=== PATIENT | male | born 1935 | race Caucasian/White ===

== ENCOUNTER 2016-10-23 13:00 | Outpatient (CLI) | payer MEDICARE, OTHER | END 2016-10-23 13:01 | disposition home or self-care (01) | DX: N13.8 Other obstructive and reflux uropathy (principal); N19 Unspecified kidney failure ==

== ENCOUNTER 2016-11-23 13:50 | Outpatient (CLI) | payer MEDICARE, OTHER | END 2016-11-23 13:51 | disposition home or self-care (01) | DX: N05.9 Unspecified nephritic syndrome with unspecified morphologic changes (principal) ==

== ENCOUNTER 2020-03-11 09:03 | Emergency (ER) | payer MEDICARE, OTHER ==
--- NOTE | 2020-03-11 09:21 | ED Physician Documentation ---
History of Present Illness - Stated complaint Stated Complaint: ABNORMAL LABS - History obtained from History obtained from: Patient, Family () - Additonal information Additional information: 84-year-old gentleman with history of renal insufficiency, he does see Dr. Vera. He is not feeling well for the last couple of months, fatigued and worthless. He has had some weight loss with it. There is no pain, no pedal edema, no shortness of breath. He went to set he is PCP and I guess labs were done 2 days ago which showed something worse about his kidneys and he was advised to come here. I do not have any details of what the actual abnormalities were. Review of Systems Ten Systems: 10 systems reviewed and negative Constitutional: reports: Fatigue, Weight Loss. denies: Fever, Chills Cardiac: denies: Chest pain / pressure, Palpitations Respiratory: denies: Dyspnea, Cough GI: denies: Abdominal Pain PD PAST MEDICAL HISTORY - Past Medical History Past Medical History: Yes Cardiovascular: Coronary artery disease GI: Ulcers - Past Surgical History Past Surgical History: Yes General: Other (hernia) Cardiovascular: CABG - Present Medications Home Medications: Ambulatory Orders Medication Instructions Recorded Confirmed Aspirin [[place] Aspirin EC] mg PO 03/11/20 Doxazosin [Cardura] mg PO 03/11/20 Ferrous Gluconate [Iron] 03/11/20 Lovastatin mg PO 03/11/20 Ramipril [Altace] 03/11/20 carvediloL [Coreg] 03/11/20 - Allergies Allergies/Adverse Reactions: Allergies Allergy/AdvReac Type Severity Reaction Status Date / Time No Known Drug Allergies Allergy Verified 03/11/20 09:21 - Living Situation Living Situation: reports: With spouse/s.o. - Social History Does the pt have substance abuse?: No - Family History Family history: reports: Non contributory PD ED PE NORMAL - Vitals Vital signs reviewed: Yes - General General: Alert and oriented X 3, No acute distress - HEENT HEENT: PERRL, EOMI - Neck Neck: Supple, no meningeal sign, No bony TTP - Cardiac Cardiac: RRR, No murmur - Respiratory Respiratory: No respiratory distress, Clear bilaterally - Abdomen Abdomen: Soft, Non tender - Back Back: No CVA TTP, No spinal TTP - Derm Derm: Normal color, Warm and dry - Extremities Extremities: No edema, No calf tenderness / cord - Neuro Neuro: Alert and oriented X 3, Normal speech Results - Vitals Vitals: Vital Signs - 24 hr 03/11/20 03/11/20 09:05 10:35 Temperature 36.8 C Heart Rate 79 67 Respiratory 18 16 Rate Blood Pressure 165/80 H 154/71 H O2 Saturation 99 100 Oxygen O2 Source Room air - Labs Labs: Laboratory Tests 03/11/20 03/11/20 03/11/20 09:07 09:28 09:28 WBC 6.2 RBC 3.40 L Hgb 10.4 L Hct 32.1 L MCV 94.4 H MCH 30.6 MCHC 32.4 RDW 12.9 Plt Count 197 MPV 11.6 H Neut # (Auto) 4.5 Lymph # (Auto) 0.7 L [place] # (Auto) 0.6 Eos # (Auto) 0.4 Baso # (Auto) 0.1 Absolute Nucleated RBC 0.00 Nucleated RBC % 0.0 Sodium 136 Potassium 4.2 Chloride 97 L Carbon Dioxide 24 Anion Gap 15.0 H BUN 77 H Creatinine 6.3 H Estimated GFR (MDRD) 9 L Glucose 131 H Calcium 9.0 Phosphorus 6.1 H Magnesium 2.3 Total Bilirubin 0.6 AST 23 ALT 22 Alkaline Phosphatase 52 Total Protein 7.2 Albumin 3.6 Globulin 3.6 Albumin/Globulin Ratio 1.0 Lipase 46 Urine Color YELLOW Urine Clarity CLEAR Urine pH 6.5 Ur Specific [place] <=1.005 Urine Protein TRACE Urine Glucose (UA) NEGATIVE Urine Ketones NEGATIVE Urine Occult Blood NEGATIVE Urine Nitrite NEGATIVE Urine Bilirubin NEGATIVE Urine Urobilinogen 0.2 (NORMAL) Ur Leukocyte Esterase NEGATIVE Urine RBC 0-5 Urine WBC 0-3 Ur Squamous Epith Cells RARE Squamous Urine Bacteria Rare - Rads (name of study) bladder sono Radiology: EMP read contemporaneously (No bladder distention, 58 mL prevoid and 19 mL post void bladder volume with moderate prostate enlargement.) PD MEDICAL DECISION MAKING - ED course ED course: Spoke with his tear down matcher, Dr. Vera at approximately 10:30 AM discussing the acute on chronic renal failure. He seemed quite worried because in December of this year his GFR was 20 and he has been stable right around a GFR of 20 for many years. He recommended that we check an ultrasound of the bladder, if he is retaining he needs a [facility], if he is not retaining he recommended transfer to [facility] for work-up and treatment of his acute renal failure. Bladder scan was negligible, accepted to [facility] by Dr. Dulce Wiggins at approximately 11:40 AM and cobras were completed. He is stable for transport. Departure - Departure Disposition: 02 Transfer Acute Care Hosp Clinical Impression: ARF (acute renal failure) Qualifiers: Acute renal failure type: unspecified Qualified Code(s): N17.9 - Acute kidney failure, unspecified Condition: Serious
[2020-03-11 09:29] LABS: BILIRUBIN,URINE NEGATIVE (NEGATIVE); GLUCOSE, URINE (UA) NEGATIVE (NEGATIVE); KETONES,URINE (UA) NEGATIVE (NEGATIVE); LEUKOCYTE ESTERASE, URINE NEGATIVE (NEGATIVE); NITRITE,URINE NEGATIVE (NEGATIVE); OCCULT BLOOD,URINE NEGATIVE (NEGATIVE); PH,URINE 6.5 PH (5.0-7.5); PROTEIN,URINE TRACE mg/dL (NEGATIVE); UROBILINOGEN,URINE 0.2 (NORMAL) E.U./dL (NORMAL)
[2020-03-11 09:32] LABS: CLARITY,URINE CLEAR (CLEAR)
[2020-03-11 09:35] LABS: BASOPHILS # (AUTO) 0.1 10^3/uL (0.0-0.1); BASOPHILS % (AUTO) 1.4 %; EOSINOPHILS # (AUTO) 0.4 10^3/uL (0.0-0.7); EOSINOPHILS % (AUTO) 5.6 %; HGB - HEMOGLOBIN 10.4 g/dL (14.0-18.0); LYMPHOCYTES # (AUTO) 0.7 10^3/uL (1.5-3.5); LYMPHOCYTES % (AUTO) 10.5 %; MEAN CORPUSCULAR HEMOGLOBIN 30.6 pg (27.0-31.0); MEAN CORPUSCULAR HGB CONC 32.4 g/dL (32.0-36.0); MEAN CORPUSCULAR VOLUME 94.4 fL (80.0-94.0); MEAN PLATELET VOLUME 11.6 fL (7.4-11.4); MONOCYTES # (AUTO) 0.6 10^3/uL (0.0-1.0); MONOCYTES % (AUTO) 10.1 %; NEUTROPHILS # (AUTO) 4.5 10^3/uL (1.5-6.6); NEUTROPHILS % (AUTO) 72.2 %; PLT - PLATELET COUNT 197 10^3/uL (130-450); RED CELL DISTRIBUTION WIDTH 12.9 % (12.0-15.0); WHITE BLOOD COUNT 6.2 x10^3/uL (4.8-10.8)
[2020-03-11 09:47] LABS: BACTERIA,URINE Rare /HPF (None Seen); RBC,URINE 0-5 /HPF (0-5); SQUAMOUS EPITHELIAL CELL,UR RARE Squamous (<= Few)
[2020-03-11 09:49] LABS: ALBUMIN 3.6 g/dL (3.2-5.5); BILIRUBIN,TOTAL 0.6 mg/dL (0.2-1.0); CREATININE 6.3 mg/dL (0.6-1.2); MAGNESIUM 2.3 mg/dL (1.7-2.8); PHOSPHORUS 6.1 mg/dL (2.5-4.6); TOTAL PROTEIN 7.2 g/dL (6.7-8.2)
--- NOTE | 2020-03-11 11:23 | Ultrasound Report ---
PROCEDURE: Bladder INDICATIONS: renal failure TECHNIQUE: Bladder only evaluation was requested by the ordering health care provider. COMPARISON: 10/23/2016 retroperitoneal ultrasound.. FINDINGS: Kidneys are not evaluated. The prevoid bladder volume is 58 cc, postvoid residual is 19 cc. Prostate size is 3.5 x 3.1 x 5.5 cm, 31 cc prostate volume estimated. IMPRESSION: No bladder distention present, 58 cc prevoid bladder volume, 19 cc postvoid bladder volume. Mild to m oderate prostatic enlargement. Reviewed by: Bogdan Bello MD on 03/11/2020 11:22 AM PDT Approved by: Bogdan Bello MD on 03/11/2020 11:22 AM PDT Station ID: [id number]
[2020-03-11 14:11] VITALS: BP 143/77
== END 2020-03-11 14:15 | disposition short-term general hospital (02) ==
LOC: ED 09:03
DX: N17.9 Acute kidney failure, unspecified (principal)
CPT/HCPCS: 36415; 76857; 80053; 81001; 83690; 83735; 84100; 85025; 99283; 99285

== ENCOUNTER 2020-03-11 14:06 | Outpatient (CLI) | payer MEDICARE, OTHER | END 2020-03-11 14:07 | disposition short-term general hospital (02) | LOC: EMS 14:06 | PROVIDERS: ATTEND Surgery | DX: N19 Unspecified kidney failure (principal) | CPT/HCPCS: A0425; A0426 ==

== ENCOUNTER 2020-04-30 11:17 | Outpatient (CLI) | payer MEDICARE, OTHER ==
[2020-05-02 17:49] LABS: HEPATITIS B SURFACE ANTIGEN NON-REACTIVE (NON-REACTIVE)
== END 2020-04-30 11:18 | disposition home or self-care (01) ==
LOC: LAB 11:17
PROVIDERS: ATTEND Internal Medicine Nephrology
DX: B19.10 Unspecified viral hepatitis B without hepatic coma (principal)
CPT/HCPCS: 36415; 86317; 86704; 87340

== ENCOUNTER 2021-01-13 14:18 | Outpatient (CLI) | payer MEDICARE, OTHER | END 2021-01-13 14:19 | disposition EMS.NT | LOC: EMS 14:18 | DX: R53.1 Weakness (principal); R41.0 Disorientation, unspecified; R53.83 Other fatigue ==

== ENCOUNTER 2021-10-05 14:47 | Outpatient (CLI) | payer MEDICARE, OTHER ==
--- NOTE | 2021-10-05 15:35 | XRAY Report ---
PROCEDURE: Chest 2 View X-Ray INDICATIONS: HEART FAILURE TECHNIQUE: 2 view(s) of the chest. COMPARISON: None. FINDINGS: SUPPORT DEVICES: Sternotomy wires are well aligned. Post CABG change. Surgical clips in the gastroesophageal region. LUNGS/PLEURA: Extensive bilateral calcified granulomas. Coarsened interstitial markings. Biapical pleural thickening/scarring. No focal consolidation, pleural effusion or space-occupying pne umothorax. MEDIASTINUM: The cardiomediastinal silhouette is within normal limits. BONES/SOFT TISSUES: No acute abnormality. IMPRESSION: 1.No acute cardiopulmonary abnormality. Reviewed by: Isaias Harmon MD on 10/05/2021 3:34 PM PST Approved by: Isaias Harmon MD on 10/05/2021 3:34 PM PST Station ID: [id number]
== END 2021-10-05 14:48 | disposition home or self-care (01) ==
LOC: DI 14:47
PROVIDERS: ATTEND Internal Medicine Nephrology
DX: I50.9 Heart failure, unspecified (principal)

== ENCOUNTER 2021-10-21 18:21 | Outpatient (CLI) | payer MEDICARE, OTHER | END 2021-10-21 18:22 | disposition critical access hospital (66) | LOC: EMS 18:21 | DX: R53.1 Weakness (principal); R53.83 Other fatigue; R42 Dizziness and giddiness | CPT/HCPCS: A0425; A0427 ==

== ENCOUNTER 2021-10-21 18:46 | Observation (INO) | payer MEDICARE, OTHER ==
[2021-10-21 19:32] LABS: BASOPHILS % (AUTO) 0.3 %; EOSINOPHILS # (AUTO) 0.1 10^3/uL (0.0-0.7); EOSINOPHILS % (AUTO) 1.2 %; HCT - HEMATOCRIT 37.6 % (42.0-52.0); HGB - HEMOGLOBIN 12.2 g/dL (14.0-18.0); LYMPHOCYTES # (AUTO) 0.7 10^3/uL (1.5-3.5); LYMPHOCYTES % (AUTO) 6.5 %; MEAN CORPUSCULAR HEMOGLOBIN 30.2 pg (27.0-31.0); MEAN CORPUSCULAR HGB CONC 32.4 g/dL (32.0-36.0); MEAN CORPUSCULAR VOLUME 93.1 fL (80.0-94.0); MEAN PLATELET VOLUME 11.9 fL (7.4-11.4); MONOCYTES # (AUTO) 0.7 10^3/uL (0.0-1.0); MONOCYTES % (AUTO) 6.5 %; NEUTROPHILS # (AUTO) 8.9 10^3/uL (1.5-6.6); NEUTROPHILS % (AUTO) 85.1 %; NRBC ABSOLUTE COUNT (AUTO) 0.16 x10^3/uL; NUCLEATED RED BLOOD CELLS AUTO 1.5 /100WBC; PLT - PLATELET COUNT 143 10^3/uL (130-450); RED BLOOD COUNT 4.04 10^6/uL (4.70-6.10); RED CELL DISTRIBUTION WIDTH 16.5 % (12.0-15.0); WHITE BLOOD COUNT 10.4 x10^3/uL (4.8-10.8)
[2021-10-21 19:35] LABS: ALBUMIN 1.1 g/dL (3.2-5.5); ALBUMIN/GLOBULIN RATIO 0.3 (1.0-2.2); BILIRUBIN,TOTAL 0.7 mg/dL (0.2-1.0); CALCIUM 7.1 mg/dL (8.5-10.3); CREATININE 6.7 mg/dL (0.6-1.2); POTASSIUM 2.7 mmol/L (3.5-5.0); TOTAL PROTEIN 4.6 g/dL (6.7-8.2)
--- NOTE | 2021-10-21 19:39 | XRAY Report ---
PROCEDURE: Chest 1 View X-Ray INDICATIONS: chest pain TECHNIQUE: One view of the chest was acquired. COMPARISON: Chest radiographs 10/05/2021 FINDINGS: Surgical changes and devices: Postsurgical changes from median sternotomy and CABG. A right sided tara edith catheter is seen with catheter tip projecting over the superior cavoatrial junction. Surgical cli ps are seen projecting over the gastroesophageal junction and mediastinum. Lungs and pleura: No pleural effusions or pneumothorax. No acute consolidation. Bilateral calcified granulomas are redemonstrated. Mediastinum: Mediastinal contours appear normal. Heart size is normal. Aortic atherosclerotic calc ifications are present. Bones and chest wall: No suspicious bony lesions. Overlying soft tissues appear unremarkable. IMPRESSION: No acute cardiopulmonary abnormality. Reviewed by: Sanya Arredondo MD on 10/21/2021 7:38 PM PST Approved by: Sanya Arredondo MD on 10/21/2021 7:38 PM PST Station ID: [id number]
[2021-10-21 19:43] LABS: INR 1.2 (0.8-1.2); PT - PROTHROMBIN TIME 13.2 secs (9.9-12.6)
--- NOTE | 2021-10-21 19:51 | ED Physician Documentation ---
History of Present Illness - Stated complaint Stated Complaint: WEAKNESS S/P FISTULA PLACEMENT - Chief complaint Chief Complaint: Neuro - History obtained from History obtained from: Patient - Additonal information Additional information: 86yM with pmh esrd on home peritoneal dialysis, cad s/p cabg, chf, p/w generalized weakness ongoing for several months, worsening this week. Patient states that because of this, his plater production Dr. Vera recommended he start HD. he underwent R subclavian central access yesterday without complication. patient states he was npo for procedure and needed his son to help him get to the hospital prior to procedure due to weakness. He then had decreased appetite and hasn't eaten much since the procedure, and states he was unable to get up from lying today and so he and his called ems. patient currently lives alone with his and has no additional caregivers in the home. denies fevers, cp, soa, nausea, leg swelling. +generalized weakness and intermittent lightheadedness. Review of Systems Ten Systems: 10 systems reviewed and negative Constitutional: denies: Fever, Chills Cardiac: denies: Chest pain / pressure Respiratory: denies: Dyspnea Neurologic: reports: Generalized weakness, Other (dizziness) PD PAST MEDICAL HISTORY - Past Medical History Cardiovascular: Coronary artery disease GI: Ulcers - Past Surgical History Past Surgical History: Yes General: Other (hernia) Cardiovascular: CABG - Present Medications Home Medications: Ambulatory Orders Medication Instructions Recorded Confirmed Aspirin [[place] Aspirin EC] mg PO 03/11/20 Doxazosin [Cardura] mg PO 03/11/20 Ferrous Gluconate [Iron] 03/11/20 Lovastatin mg PO 03/11/20 Ramipril [Altace] 03/11/20 carvediloL [Coreg] 03/11/20 - Allergies Allergies/Adverse Reactions: Allergies Allergy/AdvReac Type Severity Reaction Status Date / Time No Known Drug Allergies Allergy Verified 03/11/20 09:21 - Social History Does the pt smoke?: No Smoking Status: Never smoker Does the pt drink ETOH?: No Does the pt have substance abuse?: No - Immunizations Immunizations are current?: Yes - POLST Patient has POLST: No PD ED PE NORMAL - Vitals Vital signs reviewed: Yes - General General: Alert and oriented X 3, No acute distress, Other (elderly appearing) - HEENT HEENT: Atraumatic, PERRL, EOMI - Neck Neck: Supple, no meningeal sign - Cardiac Cardiac: RRR - Respiratory Respiratory: No respiratory distress, Clear bilaterally - Abdomen Abdomen: Non tender, Non distended, Other (RLQ peritoneal dialysis site clean with dressing in place) - Derm Derm: Normal color, Warm and dry, Other (R subclavian central line intact with dressing clean and in place) - Extremities Extremities: No deformity - Neuro Neuro: Alert and oriented X 3, No motor deficit, No sensory deficit - Psych Psych: Normal mood, Normal affect Results - Vitals Vitals: Vital Signs - 24 hr 10/21/21 10/21/21 10/21/21 19:07 19:45 20:19 Temperature 36.7 C Heart Rate 93 92 98 Respiratory 30 H 18 16 Rate Blood Pressure 126/69 126/76 119/65 O2 Saturation 100 100 100 10/21/21 10/21/21 10/21/21 20:30 21:00 21:30 Temperature Heart Rate 96 89 90 Respiratory 19 1 L 18 Rate Blood Pressure 108/58 L 113/69 118/66 O2 Saturation 100 100 100 10/21/21 10/21/21 10/21/21 22:00 22:30 23:00 Temperature Heart Rate 87 87 89 Respiratory 18 18 18 Rate Blood Pressure 119/69 118/69 118/61 O2 Saturation 100 100 100 Oxygen O2 Source Room air - Labs Labs: Laboratory Tests 10/21/21 10/21/21 10/21/21 19:10 19:10 19:10 WBC 10.4 RBC 4.04 L Hgb 12.2 L Hct 37.6 L MCV 93.1 MCH 30.2 MCHC 32.4 RDW 16.5 H Plt Count 143 MPV 11.9 H Neut # (Auto) 8.9 H Lymph # (Auto) 0.7 L [place] # (Auto) 0.7 Eos # (Auto) 0.1 Baso # (Auto) 0.0 Absolute Nucleated RBC 0.16 Nucleated RBC % 1.5 PT 13.2 H INR 1.2 Sodium 138 Potassium 2.7 L Chloride 100 L Carbon Dioxide 25 Anion Gap 13.0 BUN 35 H Creatinine 6.7 H Estimated GFR (MDRD) 8 L Glucose 235 H Calcium 7.1 L Magnesium Total Bilirubin 0.7 AST 14 ALT 11 Alkaline Phosphatase 88 Total Creatine Kinase Total Protein 4.6 L Albumin 1.1 L Globulin 3.5 Albumin/Globulin Ratio 0.3 L Lipase 107 H 10/21/21 10/21/21 20:56 23:10 WBC RBC Hgb Hct MCV MCH MCHC RDW Plt Count MPV Neut # (Auto) Lymph # (Auto) [place] # (Auto) Eos # (Auto) Baso # (Auto) Absolute Nucleated RBC Nucleated RBC % PT INR Sodium 136 Potassium 3.5 Chloride 103 Carbon Dioxide 20 L Anion Gap 13.0 BUN 33 H Creatinine 6.9 H Estimated GFR (MDRD) 8 L Glucose 193 H Calcium 7.2 L Magnesium 1.8 Total Bilirubin AST ALT Alkaline Phosphatase Total Creatine Kinase 298 H Total Protein Albumin Globulin Albumin/Globulin Ratio Lipase PD MEDICAL DECISION MAKING - ED course ED course: 86yM p/w generalized weakness for several months, worsening over the past couple days. will check labs, cxr, ekg, reevaluate. Potassium 2.7 is potential precipitant of muscle weakness. also with signs of severe malnourishment. d/w Dr. Enrique, operations lead for Dr. Vera, patient's plater production who recommends observation admission to correct lyte imbalances. He states patient will not need dialysis for several days. d/w Dr. Ramirez who would like us to recheck K after repletion. He will check in with warehouse order picker whether we can bring patient's home peritoneal dialysis equipment in to the hospital. Patient states his son can bring the equipment to the hospital if needed. Departure - Departure Disposition: ED Place in Observation Clinical Impression: Malnourished, Weakness, Hypokalemia Condition: Stable
[2021-10-21] MEDS ORDERED: POTASSIUM CHLORIDE 20 MEQ/15 ML UDC PO STA (19:57)
[2021-10-21] MEDS ORDERED: POTASSIUM CHLOR 10 MEQ/100 ML 10 MEQ/100 ML BAG IV ONE (19:58)
[2021-10-21] MEDS ORDERED: CALCIUM GLUCONATE IN NS 0.9% 2,000 MG/100 ML BAG IV STA (20:27)
[2021-10-21 21:14] LABS: MAGNESIUM 1.8 mg/dL (1.7-2.8)
[2021-10-21 23:38] LABS: CALCIUM 7.2 mg/dL (8.5-10.3); CREATININE 6.9 mg/dL (0.6-1.2); POTASSIUM 3.5 mmol/L (3.5-5.0)
[2021-10-21] MEDS ORDERED: D5.45NS W/20 MEQ KCL 1,000 ML IV SCH (23:45)
--- NOTE | 2021-10-21 23:55 | HISTORY & PHYSICAL EXAMINATION ---
Chief Complaint - Chief Complaint Chief Complaint: Weakness History of Present Illness - Admitted From Admitted From:: Home - History Obtained From Records Reviewed: Yes History obtained from: Patient, ER Physician, EMR - History of Present Illness HPI Comment/Other: This is a 86-year-old male with a past medical history significant for end-stage renal disease on peritoneal dialysis, hypertension, coronary artery disease who presents today due to increasing weakness. He states that has been progressive over the past 1 to 2 years but over the past 2 to 3 days he has progressively become weaker. He had a dialysis catheter placed yesterday in the right chest wall in preparation of starting hemodialysis instead of peritoneal dialysis. He states today he could not get up out of bed on his own which is unusual. He normally ambulates on his own without the use of a walker although he does have one at home. He states he did do physical therapy about 6 months ago which did provide some benefit. He reports no chest pain or dyspnea. He does have heartburn and has a history of a duodenal ulcer in the past. He is on a PPI for this. He reports no focal deficits. Just generalized weakness. He has been on peritoneal dialysis for about 3 years now. He does not nearly every day with his sessions running about 10 hours. He last had peritoneal dialysis last night. He does report decreased oral intake and a poor appetite. No nausea or diarrhea. He reports no muscle aches or pain. He follows with Dr. Vera of Nephrology. In the emergency department, he was noted to have a potassium of 2.7. Given his weakness and hypokalemia, medicine was asked to place the patient in observation. I did discuss goals of care with the patient and he would like to be a DNR. History - Past Medical History Cardiovascular: reports: Hypertension, Coronary artery disease GI: reports: Ulcers : reports: Dialysis, Renal insuffiency HEENT: reports: Chronic hearing loss MRSA Hx?: No - Past Surgical History General: reports: EGD, Other (hernia) Cardiovascular: reports: CABG - Family & Social History Family History Comment/Other: He reports his father from renal dise ase. His paternal grandfather had a myocardial infarction. Living arrangement: At home Living Situation: With spouse/s.o. Social History Notes: He lives at home with his . He smoked a pack a day for 10 years but quit in the 50s. He will rarely drink a glass of wine. - POLST Patient has POLST: No Meds/Allgy - Home Medications Home Medications: Ambulatory Orders Medication Instructions Recorded Confirmed Aspirin [[place] Aspirin EC] mg PO 03/11/20 Doxazosin [Cardura] mg PO 03/11/20 Ferrous Gluconate [Iron] 03/11/20 Lovastatin mg PO 03/11/20 Ramipril [Altace] 03/11/20 carvediloL [Coreg] 03/11/20 - Allergies Allergies/Adverse Reactions: Allergies Allergy/AdvReac Type Severity Reaction Status Date / Time No Known Drug Allergies Allergy Verified 03/11/20 09:21 Review of Systems - Constitutional Constitutional: reports: Fatigue, Weakness, Poor appetite. denies: Fever, Chills - Ears, Nose & Throat Ears, Nose & Throat: denies: Nasal discharge, Postnasal drainage, Sore throat - Cardiovascular Cariovascular: reports: Edema. denies: Chest pain, Exertional dyspnea, Decr. exercise tolerance - Respiratory Respiratory: denies: Cough, SOB at rest, SOB with exertion - Gastrointestinal Gastrointestinal: reports: Reflux/heartburn, Poor appetite. denies: Abdominal pain, Diarrhea, Change in bowel habits, Nausea, Vomiting - Genitourinary Genitourinary: reports: Other (Minimal urine output.) - Integumentary Integumentary: denies: Rash - Neurological Neurological: reports: General weakness. denies: Focal weakness, Headache, Dizziness, Numbness Prior Level of Functionality: He is normally independent with his ADLs. Exam - Vital Signs Reviewed Vital Signs: Yes Vital Signs: Vital Signs x48h Temp Pulse Resp BP Pulse Ox 10/21/21 23:30 93 16 109/60 100 10/21/21 23:00 89 18 118/61 100 10/21/21 22:30 87 18 118/69 100 10/21/21 22:00 87 18 119/69 100 10/21/21 21:30 90 18 118/66 100 10/21/21 21:00 89 1 L 113/69 100 10/21/21 20:30 96 19 108/58 L 100 10/21/21 20:19 98 16 119/65 100 10/21/21 19:45 92 18 126/76 100 10/21/21 19:07 36.7 C 93 30 H 126/69 100 - Physical Exam General Appearance: positive: No acute distress, Alert Eyes Bilateral: positive: Normal inspection, Conjunctivae nml ENT: positive: ENT inspection nml, Dry mucous membranes. negative: No signs of dehydration Neck: positive: Nml inspection Respiratory: positive: No respiratory distress. negative: Wheezes, Rales Cardiovascular: positive: Regular rate & rhythm. negative: Tachycardia, Systolic murmur Abdomen: positive: Non-tender, No distention, Other (Peritoneal dialysis catheter in place.). negative: Tenderness Skin: positive: Warm, Dry Extremities: positive: Pedal edema (+1 edema in bilateral lower extremities.) Neurologic/Psychiatric: positive: Other (No focal deficits. He is moving all four extremities.). negative: Disoriented to person, Disoriented to place Conclusion/Plan - Problem List (1) Weakness Conclusion/Plan: This appears to be multifactorial and secondary to his end-stage renal disease, age, and decreased appetite/decreased oral intake. His potassium is also noted to be decreased at 2.7 but I am not sure that this is the cause of his weakness which seems to have been gradual. At this time, we will hydrate him overnight with IV fluids. We have replaced his potassium and recheck is 3.5. We will give another 20 mEq of potassium. We will ask PT to evaluate him and we will consult social work to assist with disposition as he may benefit from caregivers at home. We will also check a troponin although low suspicion for ACS. (2) Hypokalemia Conclusion/Plan: His potassium was decreased at 2.7. His magnesium was within normal limits. This was initially thought potentially be contributing to his weakness and was replaced in the emergency department. It is improved to 3.5 but he still has weakness without improvement. We will give him another 20 mill equivalents of potassium and recheck in the morning. (3) ESRD (end stage renal disease) Conclusion/Plan: He has end-stage renal disease and is currently on peritoneal dialysis with a plan to transition to hemodialysis shortly as a catheter was just placed at [facility] in [place]. He is followed by Dr. Vera of nephrology. We will ask his family to bring in his peritoneal dialysis equipment if he needs to be hospitalized for more than one night. (4) Hyperglycemia Conclusion/Plan: His blood glucose elevated at 235. We will check an A1c and start him on Lantus 5 units this evening plus sliding scale. (5) History of coronary artery disease Conclusion/Plan: He has known history of coronary artery disease status post CABG. His EKG does not suggest ischemia at the moment although there was a lot of motion artifact. We will resume his home medications and check a troponin. - Lab Results Lab results reviewed: Yes Hammad Bones: 10/21/21 19:10 10/21/21 23:10 - Diagnostic Imaging Results Diagnostic Imaging Results: positive: Final report reviewed - EKG Results EKG Interpreted Independently: Yes EKG Findings: EKG appears to show sinus rhythm with low voltage. There is motion artifact. Core Measures - Anticipated LOS I expect patient to be DC'd or transferred within 96 hours.: Yes - Issues Hospital Issues and Management Plan: 86-year-old male with end-stage renal disease on peritoneal dialysis presents with progressive weakness found to be hypokalemic. Will place in observation for potassium supplementation and IV hydration. - DVT/VTE - Prophylaxis VTE/DVT Device ordered at admit?: Yes VTE/DVT Prophylaxis med ordered at admit?: Yes
[2021-10-21] MEDS ORDERED: SODIUM CHLORIDE FLUSH 0.9% 10 ML SYRINGE IVP PRN (23:59)
[2021-10-21] MEDS ORDERED: ONDANSETRON 4 MG/2 ML VIAL IVP PRN (23:59)
[2021-10-21] MEDS ORDERED: ONDANSETRON ODT 4 MG TABLET TL PRN (23:59)
[2021-10-21] MEDS ORDERED: ACETAMINOPHEN 325 MG TABLET PO PRN (23:59)
[2021-10-22] MEDS ORDERED: POTASSIUM CHLORIDE 20 MEQ TABLET PO ONE (00:02)
[2021-10-22] MEDS ORDERED: INSULIN GLARGINE 300 UNIT/3 ML PEN SUBQ SCH (00:10)
[2021-10-22] MEDS ORDERED: NS W/20 MEQ KCL 1,000 ML IV SCH (01:00)
[2021-10-22 01:16] LABS: B. PARAPERTUSSIS- RESP PCR PAN NOT DETECTED; B. PERTUSSIS- RESP PCR PANEL NOT DETECTED; C. PNEUMONIAE- RESP PCR PANEL NOT DETECTED; CORONAVIRUS 229E-RESP PCR NOT DETECTED; CORONAVIRUS HKU1-RESP PCR NOT DETECTED; CORONAVIRUS NL63-RESP PCR NOT DETECTED; CORONAVIRUS OC43-RESP PCR NOT DETECTED; HUMAN METAPNEUMOVIRUS NOT DETECTED; INFLUENZA A- RESP PCR PANEL NOT DETECTED; INFLUENZA B - RESP PCR PANEL NOT DETECTED; M. PNEUMONIAE- RESP PCR PANEL NOT DETECTED; PARAINFLUENZA VIRUS 1 NOT DETECTED; PARAINFLUENZA VIRUS 2 NOT DETECTED; PARAINFLUENZA VIRUS 3 NOT DETECTED; PARAINFLUENZA VIRUS 4 NOT DETECTED; RHINOVIRUS/ENTEROVIRUS NOT DETECTED; RSV- RESP PCR PANEL NOT DETECTED; SARS-CoV-2 -RESP PCR PANEL NOT DETECTED
[2021-10-22] MEDS: SODIUM CHLORIDE FLUSH 0.9% 10 ML SYRINGE IVP SCH ×2 (01:28→09:10)
[2021-10-22 05:55] LABS: BASOPHILS % (AUTO) 0.4 %; EOSINOPHILS # (AUTO) 0.2 10^3/uL (0.0-0.7); EOSINOPHILS % (AUTO) 1.8 %; HCT - HEMATOCRIT 34.7 % (42.0-52.0); HGB - HEMOGLOBIN 11.2 g/dL (14.0-18.0); LYMPHOCYTES # (AUTO) 0.9 10^3/uL (1.5-3.5); LYMPHOCYTES % (AUTO) 9.4 %; MEAN CORPUSCULAR HEMOGLOBIN 29.9 pg (27.0-31.0); MEAN CORPUSCULAR HGB CONC 32.3 g/dL (32.0-36.0); MEAN CORPUSCULAR VOLUME 92.5 fL (80.0-94.0); MEAN PLATELET VOLUME 11.9 fL (7.4-11.4); MONOCYTES # (AUTO) 0.7 10^3/uL (0.0-1.0); MONOCYTES % (AUTO) 7.5 %; NEUTROPHILS # (AUTO) 7.9 10^3/uL (1.5-6.6); NEUTROPHILS % (AUTO) 80.5 %; NRBC ABSOLUTE COUNT (AUTO) 0.17 x10^3/uL; NUCLEATED RED BLOOD CELLS AUTO 1.7 /100WBC; PLT - PLATELET COUNT 128 10^3/uL (130-450); RED BLOOD COUNT 3.75 10^6/uL (4.70-6.10); RED CELL DISTRIBUTION WIDTH 16.4 % (12.0-15.0); WHITE BLOOD COUNT 9.8 x10^3/uL (4.8-10.8)
[2021-10-22 07:13] LABS: CALCIUM 7.5 mg/dL (8.5-10.3); MAGNESIUM 1.9 mg/dL (1.7-2.8); PHOSPHORUS 3.6 mg/dL (2.5-4.6); POTASSIUM 3.7 mmol/L (3.5-5.0)
[2021-10-22 07:15] LABS: CREATININE 7.2 mg/dL (0.6-1.2)
[2021-10-22 07:52] VITALS: BP 113/58
[2021-10-22] MEDS: INSULIN ASPART 300 UNIT/3 ML PEN SUBQ SCH ×2 (08:10→12:25)
[2021-10-22] MEDS ORDERED: HEPARIN 5,000 UNIT/ML VIAL SUBQ SCH (09:00)
--- NOTE | 2021-10-22 10:52 | Discharge Plan ---
Discharge Plan Problem Reviewed?: Yes Disposition: Home Health Service Condition: Fair Diet: Low Sodium Activity Restrictions: Activity as Tolerated Shower Restrictions: No Driving Restrictions: No Health Concerns: Unfortunately you have end-stage renal disease and are already on peritoneal dialysis at home. For the last few months he been getting progressively weaker, and in the last few days you have been unable to get out of bed. You are transitioning from peritoneal dialysis to hemodialysis in the next week or so. In our emergency room we found her potassium to be low. However, we think the main problem is weight loss, and failure to thrive. It is a fancy way of saying that you are not doing well due to lack of protein diet, and the progression of your diseases in your body. You are not having a heart attack. You do not have an infection. These are other reasons why someone would get very weak very quickly. You have mild anemia. And renal disease anemia can get quite profound. A normal amount of blood in a man is 14 g of hemoglobin. You live between 11 to 12 g. We do not get worried until you are below 7 g. We gave you potassium and IV fluids in the emergency room and those are corrected. Your creatinine is up to 7.2 and you need peritoneal dialysis. Plan of Treatment: Since your potassium is now normal, and it is time for you to have peritoneal dialysis, we are sending you home. Physical therapy evaluated you and while you do have weakness, you and physical therapy feel you are safe to return to home for right now. Please consider the possibility of needing caregivers in the near future to help you at home. I do not know if you have plans for living in an assisted living facility or usp down the road. Talk to your and children about what to do if you can no longer take care of yourself. Care Goals: At this time to return to home to independent living. Progressed to hemodialysis. Plan for the future. Follow-Up Care: Home Health - RN, Home Health - PT No Smoking: If you smoke, Please STOP! Call for help. Follow-up with: Oliver Mustafa MD [Primary Care Provider] -
[2021-10-22 11:17] LABS: ESTIMATED AVERAGE GLUCOSE 146 mg/dL (70-100); HEMOGLOBIN A1c% 6.7 % (4.27-6.07)
--- NOTE | 2021-10-22 12:10 | PHARMACY PROGRESS NOTE ---
- Best Possible Medication History Admit Date and Time: 10/21/21 0978 Processed by: Pharmacy Medication History completed: Yes Patient Interview: Completed Secondary Source(s): Pharmacy records, Insurance records As the person ultimately responsible for medication therapy, providers are able to order a medication from an existing home medication list in [facility] via the "Reconcile Routine" prior to Confirmation of that medication by retail support associate. Such practice is discouraged except when the physician, in their clinical judgment, deems that a medical need exists for a medication without regard to previous use.
--- NOTE | 2021-10-23 19:50 | DISCHARGE SUMMARY ---
Discharge Summary Admit Date: 10/22/21 Discharge Date: 10/22/21 Discharging Provider: Anne Amin MD Primary Care Provider: Oliver Mustafa Code Status: Attempt Resuscitation Condition at Discharge: Fair Discharge Disposition: Home Health Service - DIAGNOSES Discharge Diagnoses with Status of Each Condition: 1. Generalized weakness 2. Hypokalemia 3. End-stage renal disease 4. Hyperglycemia 5. History of coronary artery disease 6. Cachexia - HPI History of Present Illness: This is a 86-year-old male with a past medical history significant for end-stage renal disease on peritoneal dialysis, hypertension, coronary artery disease who presents today due to increasing weakness. He states that has been progressive over the past 1 to 2 years but over the past 2 to 3 days he has progressively become weaker. He had a dialysis catheter placed yesterday in the right chest wall in preparation of starting hemodialysis instead of peritoneal dialysis. He states today he could not get up out of bed on his own which is unusual. He normally ambulates on his own without the use of a walker although he does have one at home. He states he did do physical therapy about 6 months ago which did provide some benefit. He reports no chest pain or dyspnea. He does have heartburn and has a history of a duodenal ulcer in the past. He is on a PPI for this. He reports no focal deficits. Just generalized weakness. He has been on peritoneal dialysis for about 3 years now. He does not nearly every day with his sessions running about 10 hours. He last had peritoneal dialysis last night. He does report decreased oral intake and a poor appetite. No nausea or diarrhea. He reports no muscle aches or pain. He follows with Dr. Vera of Nephrology. In the emergency department, he was noted to have a potassium of 2.7. Given his weakness and hypokalemia, medicine was asked to place the patient in obser vation. I did discuss goals of care with the patient and he would like to be a DNR. - Past Medical History Cardiovascular: reports: Hypertension, Coronary artery disease GI: reports: Ulcers : reports: Dialysis, Renal insuffiency HEENT: reports: Chronic hearing loss MRSA Hx?: No - Past Surgical History General: reports: EGD, Other (hernia) Cardiovascular: reports: CABG - HOSPITAL COURSE Hospital Course: The patient was given supplementation for his potassium. That became normal. Even with that he was still weak, fatigued. He said he is lost a tremendous amount of weight over the last year. A1c was 6.7%. His creatinine did rise to 7.2 on the day of discharge. But he states that he does peritoneal dialysis at home. We were thinking we might bring all the supplies into the hospital and do that here but he could not get his son on the phone to organize this. And his is not able to do it either. As such the patient is sent home with generalized weakness. We have done a home health referral with social work to see if he can identify opportunities were he can get some help. He is very deconditioned. He is about to start hemodialysis. Temperature is 36.9. Pulse is 94. Blood pressure 113/58. Respirations 19 and he is 99% on room air. He is a cachectic, weak, pleasant gentleman. Lungs are clear. Slow shallow unlabored respiration. Regular rate and rhythm with a harsh systolic ejection murmur. The abdomen is slightly rotund, but no fluid wave, nontender. Extremities are without edema with profound muscle wasting. He walks slowly in the room. No ataxia but it takes quite a bit of time just to sit, stand, and walk to a chair. - ALLERGIES Allergies/Adverse Reactions: Allergies Allergy/AdvReac Type Severity Reaction Status Date / Time No Known Drug Allergies Allergy Verified 03/11/20 09:21 - MEDICATIONS Home Medications: Ambulatory Orders Medication Instructions Recorded Confirmed Aspirin [Petroleum Aspirin] 81 mg PO DAILY 10/22/21 10/22/21 Cholecalciferol (Vitamin D3) 25 mcg PO DAILY 10/22/21 10/22/21 [Vitamin D3] Lovastatin 40 mg PO QPM 10/22/21 10/22/21 Midodrine HCl 10 mg PO TID 10/22/21 10/22/21 Potassium Chloride [Klor-Con M10] 10 meq PO TID 10/22/21 10/22/21 carvediloL [Coreg] 3.125 mg PO QPM 10/22/21 10/22/21 - LABS Result Diagrams: 10/22/21 05:05 10/22/21 05:05
== END 2021-10-22 15:10 | disposition home health service (06) ==
LOC: EDUNIT# → ED 18:46 → MS2 23:59
PROVIDERS: ADMIT Internal Medicine; ATTEND Specialist
DX: E87.6 Hypokalemia (principal); R53.1 Weakness; E43 Unspecified severe protein-calorie malnutrition; Z68.1 Body mass index [BMI] 19.9 or less, adult; Z20.822 Contact with and (suspected) exposure to COVID-19; I12.0 Hypertensive chronic kidney disease with stage 5 chronic kidney disease or end stage renal disease; N18.6 End stage renal disease; Z99.2 Dependence on renal dialysis; R73.9 Hyperglycemia, unspecified; R64 Cachexia; Z66 Do not resuscitate; I25.10 Atherosclerotic heart disease of native coronary artery without angina pectoris; Z95.1 Presence of aortocoronary bypass graft; Z87.891 Personal history of nicotine dependence; R62.7 Adult failure to thrive; D64.9 Anemia, unspecified
CPT/HCPCS: 36415; 71045; 80048; 80053; 82550; 83036; 83690; 83735; 84100; 84484; 85025; 85610; 87631; 93005; 96361; 96365; 96372; 97116; 97161; 99283; 99285; A9270; G0378; J1815; 0202U

== ENCOUNTER 2021-10-25 18:16 | Outpatient (CLI) | payer MEDICARE, OTHER | END 2021-10-25 18:17 | disposition critical access hospital (66) | LOC: EMS 18:16 | DX: R42 Dizziness and giddiness (principal); R03.1 Nonspecific low blood-pressure reading; Z99.2 Dependence on renal dialysis | CPT/HCPCS: A0425; A0429 ==

== ENCOUNTER 2021-10-25 18:37 | Inpatient (IN) | payer MEDICARE, OTHER ==
[2021-10-25 19:10] LABS: BASOPHILS % (AUTO) 0.5 %; EOSINOPHILS # (AUTO) 0.1 10^3/uL (0.0-0.7); EOSINOPHILS % (AUTO) 1.7 %; HCT - HEMATOCRIT 39.9 % (42.0-52.0); HGB - HEMOGLOBIN 12.6 g/dL (14.0-18.0); LYMPHOCYTES # (AUTO) 0.8 10^3/uL (1.5-3.5); LYMPHOCYTES % (AUTO) 10.1 %; MEAN CORPUSCULAR HEMOGLOBIN 29.2 pg (27.0-31.0); MEAN CORPUSCULAR HGB CONC 31.6 g/dL (32.0-36.0); MEAN CORPUSCULAR VOLUME 92.4 fL (80.0-94.0); MEAN PLATELET VOLUME 12.4 fL (7.4-11.4); MONOCYTES # (AUTO) 0.6 10^3/uL (0.0-1.0); MONOCYTES % (AUTO) 7.8 %; NEUTROPHILS # (AUTO) 6.4 10^3/uL (1.5-6.6); NEUTROPHILS % (AUTO) 79.5 %; NRBC ABSOLUTE COUNT (AUTO) 0.12 x10^3/uL; NUCLEATED RED BLOOD CELLS AUTO 1.5 /100WBC; PLT - PLATELET COUNT 125 10^3/uL (130-450); RED BLOOD COUNT 4.32 10^6/uL (4.70-6.10); RED CELL DISTRIBUTION WIDTH 15.4 % (12.0-15.0)
[2021-10-25 19:24] LABS: ALBUMIN 1.1 g/dL (3.2-5.5); ALBUMIN/GLOBULIN RATIO 0.3 (1.0-2.2); ALKALINE PHOSPHATASE 102 IU/L (42-121); ALT ALANINE AMINOTRANSFERASE < 10 IU/L (10-60); AST ASPARTATE AMINOTRANSFERASE 33 IU/L (10-42); BILIRUBIN,TOTAL 0.7 mg/dL (0.2-1.0); BUN - BLOOD UREA NITROGEN 23 mg/dL (6-20); CALCIUM 7.1 mg/dL (8.5-10.3); CARBON DIOXIDE - CO2 24 mmol/L (21-32); CHLORIDE 101 mmol/L (101-111); CREATININE 4.8 mg/dL (0.6-1.2); GFR - MDRD 12 (>89); GLUCOSE 190 mg/dL (70-100); LIPASE 52 U/L (22-51); POTASSIUM 4.9 mmol/L (3.5-5.0); SODIUM 133 mmol/L (135-145); TOTAL PROTEIN 4.5 g/dL (6.7-8.2)
[2021-10-25] MEDS ORDERED: SODIUM CHLORIDE 0.9% 250 ML IV STA ×2 (19:31→21:21)
--- NOTE | 2021-10-25 19:35 | ED Physician Documentation ---
History of Present Illness - Stated complaint Stated Complaint: DIZZINESS - Chief complaint Chief Complaint: Neuro - History obtained from History obtained from: Patient - Additonal information Additional information: 86yM with pmh esrd, previously on home PD, now on HD for first time today (nephro Dr. Vera) p/w generalized weakness and dizziness prior to HD, low blood pressure and tachycardia during HD. He was given 750cc ivf at [facility]. patient was admitted here 10/22 to 10/23 for progressive weakness over the past year with malnourishment and hypokalemia on labwork. He expressed wish to be DNR/DNI at that time. He states Dr. Vera has coordinated palliative care follow up for him next week. denies fever, soa, cp, pain anywhere, endorsing only generalized weakness. Review of Systems Ten Systems: 10 systems reviewed and negative Constitutional: denies: Fever, Chills Cardiac: denies: Chest pain / pressure Respiratory: denies: Dyspnea GI: denies: Nausea Musculoskeletal: denies: Back pain Neurologic: reports: Generalized weakness PD PAST MEDICAL HISTORY - Past Medical History Cardiovascular: Hypertension, Coronary artery disease GI: Ulcers : Dialysis, Renal insuffiency HEENT: Chronic hearing loss - Past Surgical History Past Surgical History: Yes General: EGD, Other Cardiovascular: CABG - Present Medications Home Medications: Ambulatory Orders Medication Instructions Recorded Confirmed Aspirin [[place] Aspirin] 81 mg PO DAILY 10/22/21 10/22/21 Cholecalciferol (Vitamin D3) 25 mcg PO DAILY 10/22/21 10/22/21 [Vitamin D3] Lovastatin 40 mg PO QPM 10/22/21 10/22/21 Midodrine HCl 10 mg PO TID 10/22/21 10/22/21 Potassium Chloride [Klor-Con M10] 10 meq PO TID 10/22/21 10/22/21 carvediloL [Coreg] 3.125 mg PO QPM 10/22/21 10/22/21 - Allergies Allergies/Adverse Reactions: Allergies Allergy/AdvReac Type Severity Reaction Status Date / Time No Known Drug Allergies Allergy Verified 10/25/21 18:54 - Social History Does the pt smoke?: No Smoking Status: Former smoker Does the pt drink ETOH?: No Does the pt have substance abuse?: No - Immunizations Immunizations are current?: Yes - POLST Patient has POLST: No PD ED PE NORMAL - Vitals Vital signs reviewed: Yes - General General: Alert and oriented X 3, No acute distress, Other (emaciated, elderly gentleman in NAD) - HEENT HEENT: Atraumatic, PERRL, EOMI - Neck Neck: Supple, no meningeal sign - Cardiac Cardiac: RRR - Respiratory Respiratory: No respiratory distress, Clear bilaterally - Abdomen Abdomen: Non tender, Non distended - Derm Derm: Normal color, Warm and dry - Extremities Extremities: No deformity - Neuro Neuro: Alert and oriented X 3, No motor deficit, No sensory deficit - Psych Psych: Normal mood, Normal affect Results - Vitals Vitals: Vital Signs - 24 hr 10/25/21 10/25/21 10/25/21 18:46 19:00 19:30 Temperature 36.1 C L Heart Rate 61 136 H 127 H Respiratory 14 18 13 Rate Blood Pressure 88/51 L 100/87 H 94/61 O2 Saturation 99 97 93 10/25/21 10/25/21 10/25/21 20:00 20:30 21:18 Temperature Heart Rate 117 H 115 H 129 H Respiratory 18 13 14 Rate Blood Pressure 97/56 L 111/59 L 79/53 L O2 Saturation 97 96 100 10/25/21 10/25/21 10/26/21 22:23 23:56 01:20 Temperature 36.3 C L Heart Rate 131 H 110 H 95 Respiratory 15 24 15 Rate Blood Pressure 98/74 87/51 L 96/57 L O2 Saturation 99 99 100 Oxygen O2 Source Room air - Labs Labs: Laboratory Tests 10/25/21 10/25/21 10/25/21 19:00 19:00 19:00 WBC 8.0 RBC 4.32 L Hgb 12.6 L Hct 39.9 L MCV 92.4 MCH 29.2 MCHC 31.6 L RDW 15.4 H Plt Count 125 L MPV 12.4 H Neut # (Auto) 6.4 Lymph # (Auto) 0.8 L Bollinger # (Auto) 0.6 Eos # (Auto) 0.1 Baso # (Auto) 0.0 Absolute Nucleated RBC 0.12 Nucleated RBC % 1.5 Sodium 133 L Potassium 4.9 Chloride 101 Carbon Dioxide 24 Anion Gap 8.0 BUN 23 H Creatinine 4.8 H Estimated GFR (MDRD) 12 L Glucose 190 H Calcium 7.1 L Magnesium Total Bilirubin 0.7 AST 33 ALT < 10 L Alkaline Phosphatase 102 Troponin I High Sens 16.7 Total Protein 4.5 L Albumin 1.1 L Globulin 3.4 Albumin/Globulin Ratio 0.3 L Lipase 52 H 10/25/21 19:00 WBC RBC Hgb Hct MCV MCH MCHC RDW Plt Count MPV Neut # (Auto) Lymph # (Auto) Bollinger # (Auto) Eos # (Auto) Baso # (Auto) Absolute Nucleated RBC Nucleated RBC % Sodium Potassium Chloride Carbon Dioxide Anion Gap BUN Creatinine Estimated GFR (MDRD) Glucose Calcium Magnesium 1.9 Total Bilirubin AST ALT Alkaline Phosphatase Troponin I High Sens Total Protein Albumin Globulin Albumin/Globulin Ratio Lipase PD MEDICAL DECISION MAKING - ED course ED course: 86yM presents with hypotension from HD today, weakness ongoing for past year, malnourishment on labs. d/w patient re: options of hospitalization versus going home to be with family and f/u with palliative care and he would prefer to go home. Repeat blood pressure improved in the ED. d/w bar steward Dr. Grimm component assembler for [facility]. will provide small bolus gentle IVF and plan to send home. D/w regarding patient advanced medical illness and patient serious condition. is unaware of any POLST form, advanced planning discussions, palliative care or hospice ongoing follow up. I did discuss with her that he told me he would like to be DNR/DNI and she understands. PCP Dr. Mustafa. Patient has had a history of arrhythmia in the past but is unsure exactly what it was. got locked out of her house tonight and is staying at the [facility] of [facility]. Elder Camargo [phone] Patient with hypotension, tachycardia in ED, resolving s/p 500cc ivf. reviewed ekgs with Dr. Pablo, our hospitalist and pony trimmer. We agreed possible paroxysmal afib but more likely sinus tach with some ectopy. Will obtain orthostatics and if abnormal, admit to observation. If normal, plan to f/u outpatient with pmd/bar steward and palliative care. Departure - Departure Clinical Impression: Hypotension, ESRD (end stage renal disease)
--- NOTE | 2021-10-25 19:36 | XRAY Report ---
PROCEDURE: Chest 1 View X-Ray INDICATIONS: Chest Pain TECHNIQUE: One view of the chest was acquired. COMPARISON: 10/21/2021 FINDINGS: Surgical changes and devices: Right dialysis catheter. Median sternotomy changes and surgical clips a t the GE junction.. Lungs and pleura: No pneumothorax or significant pleural effusion. Hyperaerated lungs with innumerabl e perihilar calcifications bilaterally. No new opacities. Mediastinum: Prominent central pulmonary arteries. No central venous congestion. Normal size heart. Bones and chest wall: No suspicious bony lesions. Overlying soft tissues appear unremarkable. IMPRESSION: 1. No acute changes. 2. Findings suggestive of chronic emphysema. 3. Evidence of prior granulomatous disease. Reviewed by: Lashon Brian MD on 10/25/2021 7:34 PM PST Approved by: Lashon Brian MD on 10/25/2021 7:34 PM PST Station ID: [id number]
[2021-10-26] MEDS ORDERED: SODIUM CHLORIDE FLUSH 0.9% 10 ML SYRINGE IVP PRN (02:22)
[2021-10-26] MEDS ORDERED: ACETAMINOPHEN 325 MG TABLET PO PRN (02:22)
[2021-10-26] MEDS ORDERED: ONDANSETRON 4 MG/2 ML VIAL IVP PRN (02:22)
--- NOTE | 2021-10-26 02:34 | HISTORY & PHYSICAL EXAMINATION ---
Chief Complaint - Chief Complaint Chief Complaint: Weakness and dizziness after 1st hemodialysis History of Present Illness - Admitted From Admitted From:: ED - History Obtained From History obtained from: ED provider and the patient - History of Present Illness HPI Comment/Other: This is an 86-year-old white male who lives with his . He has a history of CAD, prior CABG, end-stage renal disease on peritoneal dialysis for 3 years and had a dialysis catheter placed recently and was transitioned to hemodialysis, had his first session today. He had low blood pressure in dialysis and required 750 cc of saline returned back at the end of dialysis. Despite this he was very dizzy and presented to the ED. His blood pressure was low and he got 2 boluses of 250 cc of saline in the ED which improved his systolic from the 60s and 70s up to the 90s and heart rate from 129 down to 95. However he is extremely orthostatic, and has a standing blood pressure in the 60s. His only complaint is that of dizziness, there has been no syncope. He otherwise has extreme weakness and was admitted here 5 days ago for weakness, cachexia, low albumin of 1.1, had PT evaluation and medications adjusted. He is being placed in Observation this time for further management of symptomatic orthostatic hypotension. He wishes to be a DNR/DNI. History - Past Medical History Cardiovascular: reports: Hypertension (He is now hypotensive, Ramipril was stopped and Midodrine started since the last hospital stay just 5 days ago.), Coronary artery disease Respiratory: reports: None Neuro: reports: Other (Generalized weakness, felt to be due to cachexia.) Endocrine/Autoimmune: reports: None GI: reports: Ulcers : reports: Dialysis, Renal insuffiency HEENT: reports: Chronic hearing loss Psych: reports: None Musculoskeletal: reports: Fatigue MRSA Hx?: No - Past Surgical History General: reports: EGD, Other (catheter) Cardiovascular: reports: CABG - Family & Social History Family History Comment/Other: He reports his father from renal disease. His paternal grandfather had a myocardial infarction. Living Situation: With spouse/s.o. Social History Notes: He lives at home with his . He smoked a pack a day for 10 years but quit in the 50s. He will rarely drink a glass of wine. - Substance History Use: Uses substance without health or social issues: NONE - POLST Patient has POLST: No Meds/Allgy - Home Medications Home Medications: Ambulatory Orders Medication Instructions Recorded Confirmed Aspirin [[place] Aspirin] 81 mg PO DAILY 10/22/21 10/22/21 Cholecalciferol (Vitamin D3) 25 mcg PO DAILY 10/22/21 10/22/21 [Vitamin D3] Lovastatin 40 mg PO QPM 10/22/21 10/22/21 Midodrine HCl 10 mg PO TID 10/22/21 10/22/21 Potassium Chloride [Klor-Con M10] 10 meq PO TID 10/22/21 10/22/21 carvediloL [Coreg] 3.125 mg PO QPM 10/22/21 10/22/21 - Allergies Allergies/Adverse Reactions: Allergies Allergy/AdvReac Type Severity Reaction Status Date / Time No Known Drug Allergies Allergy Verified 10/25/21 18:54 Review of Systems - Cardiovascular Cariovascular: reports: Irregular heart rate - Neurological Neurological: reports: General weakness - All Other Systems All Other Systems: reports: Reviewed and negative Exam - Vital Signs Reviewed Vital Signs: Yes Vital Signs: Vital Signs x48h Temp Pulse Pulse Pulse Pulse Resp BP 10/26/21 02:12 94 98 96 10/26/21 01:20 95 15 96/57 L 10/25/21 23:56 36.3 C L 110 H 24 87/51 L 10/25/21 22:23 131 H 15 98/74 10/25/21 21:18 129 H 14 79/53 L 10/25/21 20:30 115 H 13 111/59 L 10/25/21 20:00 117 H 18 97/56 L 10/25/21 19:30 127 H 13 94/61 10/25/21 19:00 136 H 18 100/87 H 10/25/21 18:46 36.1 C L 61 14 88/51 L BP BP BP Pulse Ox 10/26/21 02:12 81/49 L 61/38 L 84/56 L 10/26/21 01:20 100 10/25/21 23:56 99 10/25/21 22:23 99 10/25/21 21:18 100 10/25/21 20:30 96 10/25/21 20:00 97 10/25/21 19:30 93 10/25/21 19:00 97 10/25/21 18:46 99 - Physical Exam General Appearance: positive: No acute distress, Alert, Other (Cachectic) Eyes Bilateral: positive: Other (Eyes and cheeks sunken) ENT: positive: Dry mucous membranes, Other (Poorly fitting dentures) Neck: positive: Nml inspection, No JVD Respiratory: positive: No respiratory distress, Breath sounds nml Cardiovascular: positive: Regular rate & rhythm, Systolic murmur Abdomen: positive: Non-tender, Nml bowel sounds, No distention Skin: positive: Warm, Dry, Pallor Extremities: positive: Non-tender, Other (1+ edema to mid-shins) Neurologic/Psychiatric: positive: Oriented x3, Weakness Conclusion/Plan - Problem List (1) Orthostatic hypotension Conclusion/Plan: We will continue with very gentle hydration using saline at 50 cc an hour and will resume his midodrine 10 mg 3 times daily with meals. We will check orthostatic vital signs every shift. His only other medicine is carvedilol at the smallest dose possible which will be continued. He would also benefit from thigh-high or knee-high support stockings to use daily, off at at bedtime (2) ESRD on hemodialysis Conclusion/Plan: Will give very gentle IV hydration using saline in order to avoid volume overload since he is now a hemodialysis patient. Avoid nephrotoxins. Watch potassium and BMP daily (3) History of coronary artery disease Conclusion/Plan: We will continue with his aspirin, he likely does not need his statin given his cachexia (4) Abnormal EKG Conclusion/Plan: He has very low voltage on EKG which is suggestive of end-stage myopathy or a large pericardial effusion. His chest x-ray however does not show an enlarged cardiac silhouette to consider pericardial effusion. We will obtain an Echocardiogram since he has never had one done here, and he has a systolic murmur, and an old ER visit was labeled as for CHF (5) Heart murmur Conclusion/Plan: Will obtain an Echocardiogram as he has never had one done here (6) Cachexia Conclusion/Plan: As per recent history. We will consider another nutrition consult, however it was done 5 days ago, at the last admission - Lab Results Fish Bones: 10/25/21 19:00 10/25/21 19:00 - Diagnostic Imaging Results Diagnostic Imaging Results: positive: Final report reviewed
[2021-10-26] MEDS: SODIUM CHLORIDE 0.9% 1,000 ML IV SCH (04:03)
[2021-10-26] MEDS ORDERED: ALBUMIN 25% 12.5 GM/50 ML VIAL IV STA (08:14)
[2021-10-26 08:38] LABS: BASOPHILS # (AUTO) 0.1 10^3/uL (0.0-0.1); BASOPHILS % (AUTO) 0.7 %; EOSINOPHILS # (AUTO) 0.2 10^3/uL (0.0-0.7); EOSINOPHILS % (AUTO) 2.9 %; HCT - HEMATOCRIT 40.3 % (42.0-52.0); LYMPHOCYTES # (AUTO) 0.9 10^3/uL (1.5-3.5); LYMPHOCYTES % (AUTO) 13.5 %; MEAN CORPUSCULAR HEMOGLOBIN 29.9 pg (27.0-31.0); MEAN CORPUSCULAR HGB CONC 32.3 g/dL (32.0-36.0); MEAN CORPUSCULAR VOLUME 92.6 fL (80.0-94.0); MEAN PLATELET VOLUME 12.1 fL (7.4-11.4); MONOCYTES # (AUTO) 0.6 10^3/uL (0.0-1.0); MONOCYTES % (AUTO) 8.1 %; NEUTROPHILS # (AUTO) 5.1 10^3/uL (1.5-6.6); NEUTROPHILS % (AUTO) 74.5 %; NRBC ABSOLUTE COUNT (AUTO) 0.07 x10^3/uL; PLT - PLATELET COUNT 124 10^3/uL (130-450); RED BLOOD COUNT 4.35 10^6/uL (4.70-6.10); RED CELL DISTRIBUTION WIDTH 15.3 % (12.0-15.0); WHITE BLOOD COUNT 6.8 x10^3/uL (4.8-10.8)
[2021-10-26 08:49] LABS: ALBUMIN 1.2 g/dL (3.2-5.5); ALBUMIN/GLOBULIN RATIO 0.3 (1.0-2.2); ALKALINE PHOSPHATASE 99 IU/L (42-121); ALT ALANINE AMINOTRANSFERASE < 10 IU/L (10-60); AST ASPARTATE AMINOTRANSFERASE 24 IU/L (10-42); BILIRUBIN,TOTAL 0.9 mg/dL (0.2-1.0); BUN - BLOOD UREA NITROGEN 29 mg/dL (6-20); CALCIUM 7.3 mg/dL (8.5-10.3); CARBON DIOXIDE - CO2 23 mmol/L (21-32); CHLORIDE 103 mmol/L (101-111); CREATININE 5.4 mg/dL (0.6-1.2); GFR - MDRD 10 (>89); GLUCOSE 122 mg/dL (70-100); POTASSIUM 3.7 mmol/L (3.5-5.0); SODIUM 137 mmol/L (135-145); TOTAL PROTEIN 5.1 g/dL (6.7-8.2)
[2021-10-26] MEDS: ASPIRIN CHEW 81 MG TABLET PO SCH (08:58)
[2021-10-26] MEDS: MIDODRINE 2.5 MG TABLET PO SCH ×3 (08:59→17:57)
[2021-10-26] MEDS: SODIUM CHLORIDE FLUSH 0.9% 10 ML SYRINGE IVP SCH ×2 (09:07→17:58)
--- NOTE | 2021-10-26 09:42 | PHARMACY PROGRESS NOTE ---
- Best Possible Medication History Admit Date and Time: 10/26/21221 Processed by: Pharmacy Medication History completed: Yes Secondary Source(s): Previous admit records As the person ultimately responsible for medication therapy, providers are able to order a medication from an existing home medication list in [facility] via the "Reconcile Routine" prior to Confirmation of that medication by administrative support clerk. Such practice is discouraged except when the physician, in their clinical judgment, deems that a medical need exists for a medication without regard to previous use.
[2021-10-26] MEDS ORDERED: ZINC OXIDE 20% OINT 30 GM TUBE TOP PRN (18:25)
[2021-10-27] MEDS: SODIUM CHLORIDE FLUSH 0.9% 10 ML SYRINGE IVP SCH ×2 (00:03→09:26)
[2021-10-27] MEDS: SODIUM CHLORIDE 0.9% 1,000 ML IV SCH (00:03)
[2021-10-27 05:08] LABS: BASOPHILS # (AUTO) 0.1 10^3/uL (0.0-0.1); EOSINOPHILS # (AUTO) 0.3 10^3/uL (0.0-0.7); EOSINOPHILS % (AUTO) 4.7 %; HCT - HEMATOCRIT 33.5 % (42.0-52.0); HGB - HEMOGLOBIN 10.8 g/dL (14.0-18.0); LYMPHOCYTES # (AUTO) 0.7 10^3/uL (1.5-3.5); LYMPHOCYTES % (AUTO) 9.5 %; MEAN CORPUSCULAR HEMOGLOBIN 29.8 pg (27.0-31.0); MEAN CORPUSCULAR HGB CONC 32.2 g/dL (32.0-36.0); MEAN CORPUSCULAR VOLUME 92.5 fL (80.0-94.0); MONOCYTES # (AUTO) 0.6 10^3/uL (0.0-1.0); MONOCYTES % (AUTO) 8.2 %; NEUTROPHILS # (AUTO) 5.3 10^3/uL (1.5-6.6); NEUTROPHILS % (AUTO) 76.2 %; NRBC ABSOLUTE COUNT (AUTO) 0.02 x10^3/uL; NUCLEATED RED BLOOD CELLS AUTO 0.3 /100WBC; PLT - PLATELET COUNT 130 10^3/uL (130-450); RED BLOOD COUNT 3.62 10^6/uL (4.70-6.10)
[2021-10-27 05:22] LABS: ALBUMIN 1.2 g/dL (3.2-5.5); ALBUMIN/GLOBULIN RATIO 0.4 (1.0-2.2); ALKALINE PHOSPHATASE 75 IU/L (42-121); ALT ALANINE AMINOTRANSFERASE < 10 IU/L (10-60); AST ASPARTATE AMINOTRANSFERASE 19 IU/L (10-42); BILIRUBIN,TOTAL 0.7 mg/dL (0.2-1.0); BUN - BLOOD UREA NITROGEN 33 mg/dL (6-20); CARBON DIOXIDE - CO2 23 mmol/L (21-32); CHLORIDE 106 mmol/L (101-111); CREATININE 5.8 mg/dL (0.6-1.2); GFR - MDRD 9 (>89); GLUCOSE 162 mg/dL (70-100); POTASSIUM 3.7 mmol/L (3.5-5.0); SODIUM 139 mmol/L (135-145); TOTAL PROTEIN 4.2 g/dL (6.7-8.2)
[2021-10-27 08:28] LABS: RETICULOCYTE COUNT % (AUTO) 4.86 % (0.5-2.3)
[2021-10-27 08:32] LABS: ABSOLUTE RETICS # AUTO 0.202 10^6/uL (0.020-0.110); RED BLOOD COUNT 4.15 10^6/uL (4.70-6.10)
[2021-10-27] MEDS ORDERED: CHOLECALCIFEROL 25 MCG TABLET PO SCH (09:00)
[2021-10-27] MEDS ORDERED: CHOLECALCIFEROL 25 MCG PO SCH (09:00)
[2021-10-27] MEDS: MIDODRINE 2.5 MG TABLET PO SCH ×2 (09:21→12:12)
[2021-10-27] MEDS: ASPIRIN CHEW 81 MG TABLET PO SCH (09:24)
--- NOTE | 2021-10-27 09:24 | Discharge Plan ---
Discharge Plan Problem Reviewed?: Yes Disposition: Home, Self Care Condition: Stable Diet: Regular Activity Restrictions: Activity as Tolerated (slowly standup and slowly walk for prevention of fall specailly if you feel dizziness) Shower Restrictions: No (fall precaution) Instruction Topics: Dizziness Balance Probs Fainting, Dizziness Fainting Poss Causes Health Concerns: dizziness Plan of Treatment: You report you feel much better for your dizziness. you have dialysis on today and hope to be d/c for dialysis. Your home med Coreg is hold for your dizziness now. You may keep hydration at home, slowly standup and slow walk for prevention of dizziness and fall. You may followup with research contracts supervisor and dialysis as your schedule, and followup with your PCP in one week. Care Goals: Stabilization and improvement of your medical conditions Assessment: Discussed the care plan with you, answered your questions, you understood and agreed. Additional Instructions or Follow Up instructions: You may follow-up with your PCP in 1 week, follow-up with your research contracts supervisor and dialysis schedule, should your symptoms return or worse, you may present to the ER or call 911 for help No Smoking: If you smoke, Please STOP! Call for help. Follow-up with: Oliver Mustafa MD [Primary Care Provider] -
[2021-10-27 09:31] LABS: TRANSFERRIN < 70 mg/dL (180-329)
--- NOTE | 2021-10-27 09:32 | DISCHARGE SUMMARY ---
Discharge Summary Admit Date: 10/26/21 Discharge Date: 10/27/21 Discharging Provider: Robi Leonard Primary Care Provider: Oliver Francois Condition at Discharge: Stable Discharge Disposition: 01 Home, Self Care Discharge Facility Name: home - DIAGNOSES Discharge Diagnoses with Status of Each Condition: (1) Orthostatic hypotension resolved. pt feel much better. pt walk to bathroom without dizziness or shortness of breath. His home med Coreg is hold for his low BP. advise pt may keep hydration at home, slowly standup and slow walk for prevention of dizziness and fall. (2) ESRD on hemodialysis pt had dialysis on today, he hope to catch the schedule. pt may followup with his corrugated box machine operator as the schedule. His corrugated box machine operator Dr Vera called me and we discussed the care plan for pt. (3) History of coronary artery disease stable, resume his home meds, His home med Coreg is hold for his low BP. his HR is 75 at d/c time. (4) Heart murmur Echocardiogram reveal normal EF without significant valvular pathology (5) hypoalbuminemia pt was given albumin IV, his albumin level is slight elevated, pt may continue management by his corrugated box machine operator. (6) anemia pt has ESRD chronic disease on dialysis. pt's occult stool test is negative. pt may followup with PCP to recheck blood work and monitor HGB, and followup with corrugated box machine operator's management as well. - HPI History of Present Illness: refer from Dr. Christy Pablo's HPI on 10/26/21 his is an 86-year-old white male who lives with his . He has a history of CAD, prior CABG, end-stage renal disease on peritoneal dialysis for 3 years and had a dialysis catheter placed recently and was transitioned to hemodialysis, had his first session today. He had low blood pressure in dialysis and required 750 cc of saline returned back at the end of dialysis. Despite this he was very dizzy and presented to the ED. His blood pressure was low and he got 2 boluses of 250 cc of saline in the ED which improved his systolic from the 60s and 70s up to the 90s and heart rate from 129 down to 95. However he is extremely ortho static, and has a standing blood pressure in the 60s. His only complaint is that of dizziness, there has been no syncope. He otherwise has extreme weakness and was admitted here 5 days ago for weakness, cachexia, low albumin of 1.1, had PT evaluation and medications adjusted. He is being placed in Observation this time for further management of symptomatic orthostatic hypotension. He wishes to be a DNR/DNI. - ALLERGIES Allergies/Adverse Reactions: Allergies Allergy/AdvReac Type Severity Reaction Status Date / Time No Known Drug Allergies Allergy Verified 10/25/21 18:54 - MEDICATIONS Home Medications: Ambulatory Orders Medication Instructions Recorded Confirmed Aspirin [Atkinson Aspirin] 81 mg PO DAILY 10/22/21 10/26/21 Cholecalciferol (Vitamin D3) 25 mcg PO DAILY 10/22/21 10/26/21 [Vitamin D3] Lovastatin 40 mg PO QPM 10/22/21 10/26/21 Midodrine HCl 10 mg PO TIDWM 10/22/21 10/26/21 Potassium Chloride [Klor-Con M10] 20 meq PO TID 10/22/21 10/26/21 - PHYSICAL EXAM AT DISCHARGE General Appearance: positive: No acute distress, Alert. negative: Lethargic Eyes Bilateral: positive: Normal inspection, No lid inflammation ENT: positive: ENT inspection nml, No signs of dehydration Neck: positive: Nml inspection, Trachea midline. negative: Tracheal deviation Respiratory: positive: Chest non-tender, No respiratory distress. negative: Wheezes Cardiovascular: positive: Regular rate & rhythm, Systolic murmur. negative: Tachycardia, Bradycardia Peripheral Pulses: positive: 2+ Abdomen: positive: Non-tender, Nml bowel sounds, No distention Back: positive: Nml inspection Skin: positive: Color nml, Warm, Dry. negative: Cyanosis Extremities: positive: Non-tender, Nml appearance Neurologic/Psychiatric: positive: Oriented x3, Motor nml, Sensation nml. ne gative: Weakness, Sensory loss, Facial droop, Slurred/abnml speech, Depressed mood/affect - LABS Result Diagrams: 10/27/21 04:48 10/27/21 04:48 - FOLLOW UP Follow Up: You report you feel much better for your dizziness. you have dialysis on today and hope to be d/c for dialysis. Your home med Coreg is hold for your dizziness now. You may keep hydration at home, slowly standup and slow walk for prevention of dizziness and fall. You may followup with corrugated box machine operator and dialysis as your schedule, and followup with your PCP in one week. pt may followup with his PCP in one week to have blood work including CBC and CMP, monitor HGB and Electrolytes. pt may resume his home health care You may follow-up with your PCP in 1 week, follow-up with your corrugated box machine operator and dialysis schedule, should your symptoms return or worse, you may present to the ER or call 911 for help - TIME SPENT Time Spent in Discharge (Minutes): 30
[2021-10-27 09:59] LABS: IRON 27 ug/dL (45-182)
[2021-10-27 11:10] VITALS: BP 116/56
[2021-10-27 11:49] LABS: FECAL OCCULT BLOOD (FIT) NEGATIVE (NEGATIVE)
[2021-10-27] MEDS ORDERED: ATORVASTATIN 10 MG TABLET PO SCH (21:00)
[2021-10-27] MEDS ORDERED: LOVASTATIN 40 MG PO SCH (21:00)
== END 2021-10-27 13:40 | disposition home or self-care (01) | DRG 312 ==
LOC: EDUNIT# → ED 18:37 → MS3 10-26 02:22 → OBSVTOIN 10-26 11:08
PROVIDERS: ADMIT Internal Medicine; ATTEND Nurse Practitioner Gerontology
DX: I95.1 Orthostatic hypotension (principal); N18.6 End stage renal disease; I12.0 Hypertensive chronic kidney disease with stage 5 chronic kidney disease or end stage renal disease; R64 Cachexia; R00.0 Tachycardia, unspecified; E88.09 Other disorders of plasma-protein metabolism, not elsewhere classified; R07.9 Chest pain, unspecified; D63.1 Anemia in chronic kidney disease; I25.10 Atherosclerotic heart disease of native coronary artery without angina pectoris; R01.1 Cardiac murmur, unspecified; R53.1 Weakness; R94.31 Abnormal electrocardiogram [ECG] [EKG]; Z66 Do not resuscitate; Z68.20 Body mass index [BMI] 20.0-20.9, adult; Z79.82 Long term (current) use of aspirin; Z79.899 Other long term (current) drug therapy; Z84.1 Family history of disorders of kidney and ureter; Z87.891 Personal history of nicotine dependence; Z95.1 Presence of aortocoronary bypass graft; Z99.2 Dependence on renal dialysis
CPT/HCPCS: 36415; 71045; 80053; 82274; 82607; 82728; 83540; 83615; 83690; 83735; 84466; 84484; 85025; 85045; 93005; 93306; 96361; 96365; 99285; A9270; P9047